=== PATIENT | male | born 1950 | race African-American/Black ===

== ENCOUNTER 2016-08-16 12:44 | Emergency (ER) | payer OTHER ==
[~2016-08-16] VITALS: Ht 170.2 cm; Wt 72.7 kg
[2016-08-16] MEDS ORDERED: PREDNISONE20 MG PO (15:08)
[2016-08-16] MEDS ORDERED: NAPROXEN500 MG PO (15:08)
[2016-08-16 16:47] VITALS: BP 131/68
== END 2016-08-16 16:51 | disposition home or self-care (01) ==
LOC: EME 12:44
DX: M54.16 Radiculopathy, lumbar region (principal)
CPT/HCPCS: 72100; 99281; 99284; J7512